=== PATIENT | male | born 2000 | race Caucasian/White ===

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

== ENCOUNTER 2022-11-29 12:55 | Emergency (ER) | payer BC ==
[~2022-11-29] VITALS: Ht 175.3 cm; Wt 74.4 kg
--- NOTE | 2022-11-29 12:55 | NUR ---
Patient to ER bed 4 for evaluation. Side rails up. Report given to ASHLYN Doyle.
[2022-11-29 13:12] VITALS: BP_SYST 122
[2022-11-29] MEDS ORDERED: KETOROLAC TROMETHAMINE 60 MG/2 ML VIAL IM ONE (14:00)
--- NOTE | 2022-11-29 14:00 | NUR ---
Patient seen by MD . Labs drawn, urine sent, and Radiology done.
[2022-11-29 14:33] LABS: BILIRUBIN,URINE NEGATIVE (NEGATIVE); BLOOD, URINE 2+ (NEGATIVE); CLARITY/URINE TURBID (CLEAR); GLUCOSE,URINE TRACE (NEGATIVE); KETONES,URINE TRACE (NEGATIVE); LEUKOCYTE ESTERASE ,URINE 1+ (NEGATIVE); NITRITE, URINE POSITIVE (NEGATIVE); PH,URINE 6.5 (5.0-8.0); PROTEIN URINE 2+ (NEGATIVE)
[2022-11-29 14:36] LABS: COLOR,URINE AMBER (YELLOW)
[2022-11-29 14:39] LABS: BACTERIA,URINE MANY /HPF (None Seen); WBC,URINE 20-50 /HPF (0-3); YEAST,URINE Few /HPF (None Seen)
[2022-11-29 15:00] LABS: BASOPHILS % (AUTO) 0.3 % (0.0-2.0); EOSINOPHILS % (AUTO) 0.4 % (0.0-4.0); HEMOGLOBIN 15.6 g/dL (14.0-18.0); LYMPHOCYTES # (AUTO) 1.8 K/uL (1.0-5.5); LYMPHOCYTES % (AUTO) 18.3 % (20.5-51.5); MEAN CORPUSCULAR HEMOGLOBIN 31 pg (27-31); MEAN CORPUSCULAR HGB CONC 35 % (32-36); MEAN CORPUSCULAR VOLUME 88 fL (79.0-98.0); MONOCYTES # (AUTO) 0.8 K/uL (0.0-1.0); MONOCYTES % (AUTO) 8.6 % (1.7-9.3); NEUTROPHILS % (AUTO) 72.4 % (40.0-70.0); PLATELET COUNT (AUTO) 177 K/uL (130-430); RED BLOOD CELL COUNT(AUTO) 5.11 MIL/uL (4.2-6.2); RED CELL DISTRIBUTION WIDTH 12.7 % (9.0-15.0); WHITE BLOOD COUNT (AUTO) 9.7 K/uL (4.8-10.8)
--- NOTE | 2022-11-29 15:00 | NUR ---
Patient re evaluated by MD and given antibiotics at this time. RN taught patient on UTI, STD, pain and answered questions.
[2022-11-29 15:36] LABS: ALBUMIN 4.3 g/dL (3.4-4.8); CREATININE 1.35 mg/dL (0.55-1.30); TOTAL BILIRUBIN 1.3 mg/dL (0.0-1.0)
[2022-11-29] MEDS ORDERED: IBUP-1971 PO (15:44)
[2022-11-29] MEDS ORDERED: SULF1TAB48 PO (15:44)
[2022-11-29] MEDS ORDERED: cefTRIAXone 1 GM VIAL IM ONE (16:00)
--- NOTE | 2022-11-29 16:30 | NUR ---
Patient given written and verbal discharge instructions and verbalizes understanding. ER MD discussed with patient the results and treatment provided. Patient in stable condition. ID arm band removed. Work note given to patient for work today. Rx of voltaren given. Patient educated on pain management and to follow up with PMD. Pain Scale 3/10. Opportunity for questions provided and answered. Medication side effect fact sheet provided.
== END 2022-11-29 16:30 | disposition home or self-care (01) ==
LOC: SED 12:55
DX: N39.0 Urinary tract infection, site not specified (principal); R10.31 Right lower quadrant pain; R35.89 Other polyuria; Z79.899 Other long term (current) drug therapy
CPT/HCPCS: 99285; 74176; 80053; 81000; 83690; 85025; 87086; 36415; 76376; 96372; J0696; J1885